=== PATIENT | female | born 1980 | race Caucasian/White ===

== ENCOUNTER 2018-02-11 12:06 | Outpatient (CLI) | payer OTHER ==
[~2018-02-11 12:06] MED LIST: Iopamidol 370 76% 100 ML VIAL ONE
--- NOTE | 2018-02-11 15:00 | CT ---
CT ANGIOGRAM OF HEAD WITH CONTRAST: Date: 02/11/18 HISTORY: 37-year-old female with G93.2 pseudotumor cerebri. TECHNIQUE: IV contrast injection of 100 mL Isovue-370. Axial acquisition at 2.5 mm slice thickness from mid C2 through vertex of head. Coronal and sagittal 3D MIP reconstructions COMPARISON: None. FINDINGS: There is patency with blood flow demonstrated in the bilateral internal jugular veins, sigmoid sinuse s, torcular herophili, straight sinus, vein of Manish, internal cerebral veins, and basal vein of Afia nthal, which appear normal. There is contrast opacification of the superior sagittal sinus, and bilat eral transverse sinuses, but these are thin, probably hypoplastic. There is certainly no evidence of any filling defect to indicate acute thrombosis of these veins. The bilateral carotid siphons, M1 segments of bilateral middle cerebral arteries, A1 and A2 segments of bilateral anterior cerebral arteries, intracranial vertebral arteries, basilar artery, and posteri or cerebral arteries are patent, with no evidence of high grade acquired stenosis. No aneurysm identi fied. There is a thin right paramedian, right occipital, full thickness osseous defect, representing channe l for emissary vein. The skull is otherwise normal. The bilateral tympanomastoid cavities, and the p aranasal sinuses, are grossly clear. IMPRESSION: 1. 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 2. No evidence of acute dural venous sinus thrombosis. POS: [facility]
== END 2018-02-11 12:07 | disposition home or self-care (01) ==
LOC: BICCT 12:06 → CT 12:07
PROVIDERS: ATTEND Neurological Surgery
DX: G93.2 Benign intracranial hypertension (principal); J34.89 Other specified disorders of nose and nasal sinuses
CPT/HCPCS: 70496

== ENCOUNTER 2018-03-22 05:38 | Inpatient (IN) | payer OTHER ==
--- NOTE | 2018-03-21 09:12 | HP ---
HISTORY OF PRESENT ILLNESS: This is a 37-year-old female who reports to our office for a referral fr om a neurologist, Dr. Abdiaziz Bello for evaluation of shunt placement. The patient states that she h as had consistent headaches and dizziness for several years. They are worse in the last several kacy hs. She states that she has had multiple lumbar punctures which have given her relief; however, over the last 4-6 weeks. 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 Currently smokes, wishes to quit. She states that she is hypersensitive to everything around her. She feels as though she is having morning sickness. REVIEW OF SYSTEMS: A 10-point review of systems have been completed and is negative other than state d above in the HPI. PAST MEDICAL HISTORY: Abnormal Pap, headaches, pseudotumor cerebri. PAST SURGICAL HISTORY: Partial ovarian removal, hysterectomy. FAMILY HISTORY: Father is alive, diagnosed with cancer. Mother is alive and children are alive. SOCIAL HISTORY: The patient is a smoker, smokes approximately less than half a pack a day. Denies a ny alcohol or other drug use. MEDICATIONS: Diamox. ALLERGIES: LATEX. PHYSICAL EXAMINATION: GENERAL: The patient is alert and oriented x3, does not appear to be in any visible distress. HEENT: Head is normocephalic, atraumatic. Extraocular movements are intact. Pupils are equal, roun d, and reactive to light. NECK: Normal. Soft, supple. No masses are noted. Range of motion is intact, nonpainful. NEUROLOGIC: Awake, alert and oriented x3. Memory attention, fund of knowledge and language are all normal. Cranial nerves II-XII are intact. EXTREMITIES: Upper extremities normal, does not disclose any focal motor weakness or deep tendon ref wanda asymmetry, 5/5 bilateral, deltoid, biceps, triceps. Lower extremities normal. Does not disclose any focal motor weakness or deep tendon reflex asymmetry. RESPIRATORY: Normal work of breathing on room air. Cardiovascular: Regular rate and rhythm. PLAN: Dr. Street has offered shunt placement.
[2018-03-21 14:56] VITALS: BMI 33.3
[2018-03-22] MEDS ORDERED: Bacitracin Zinc Ointment 30 gm TUBE ONE (06:16)
[2018-03-22] MEDS ORDERED: Sodium Chloride 0.9% 10 ML ONE (06:16)
[2018-03-22] MEDS ORDERED: Lidocaine 0.5%/Epinephrine 1:200,000 50 ml Vial ONE (06:16)
[2018-03-22] MEDS ORDERED: Thrombin 5000 UNITS/5 ML VIAL ONE (06:16)
[2018-03-22] MEDS ORDERED: Fentanyl 250 MCG/5 ML VIAL ONE (06:17)
[2018-03-22] MEDS ORDERED: CEFAZOLIN 2 GM/50 ML BAG ONE (06:17)
[2018-03-22] MEDS ORDERED: Albumin 5% 0 ML ONE (06:18)
[2018-03-22 06:21] LABS: #Basophils 0.1 thou/uL (0.0-0.2); #Eosinphils 0.2 thou/uL (0.0-0.7); #Lymphocytes 4.2 thou/uL (1.20-3.40); #Monocytes 0.7 thou/uL (0.11-0.59); %Basophils 0.7 % (0.0-1.0); %Eosinophils 2.5 % (0.0-10.0); %Lymphocytes 45.9 % (21.0-51.0); %Monocytes 7.2 % (0.0-10.0); %Neutrophils 43.7 % (42.0-75.0); Hemoglobin 13.6 g/dL (12.0-16.0); Mean Corpuscular HGB CONC 32.9 g/dL (32.0-36.0); Mean Corpuscular Hemoglobin 30.5 pg (27.0-31.0); Mean Corpuscular Volume 92.6 fL (78.0-98.0); Platelet Count 281 thou/uL (130-400); RBC Distribution Width 11.8 % (11.5-14.5); Red Blood Cell (RBC) Count 4.47 mill/uL (4.20-5.40); White Blood Cell (WBC) Count 9.1 thou/uL (4.8-10.8)
[2018-03-22 06:24] LABS: PTT 24.7 SEC (22.9-36.1)
[2018-03-22 06:28] LABS: INR-International Normal Ratio 0.9; Prothrombin Time 11.8 SEC (12.0-14.7)
[2018-03-22] MEDS ORDERED: Bupivacaine/Epinephrine 0.25% 30 ML VIAL ONE (06:36)
[2018-03-22] MEDS ORDERED: Midazolam HCl 2 mg/2 ml Vial ONE ×2 (06:43→09:24)
[2018-03-22] MEDS ORDERED: Vancomycin HCl 20 MG, Gentamicin (PEDI) 8 MG, Admixture Fee 1 EACH in Sodium Chloride 0... FS ONE (08:00)
[2018-03-22] MEDS ORDERED: Promethazine HCl 25 MG/ML VIAL IM PRN ×2 (08:58→11:26)
[2018-03-22] MEDS ORDERED: Acetaminophen 650 MG Suppository PR PRN (08:58)
[2018-03-22] MEDS ORDERED: Bisacodyl 10 MG SUPP PR PRN (08:58)
[2018-03-22] MEDS ORDERED: Milk Of Magnesia 30 ML UDCUP PO PRN (08:58)
[2018-03-22] MEDS ORDERED: diphenhydrAMINE 50 MG/ML VIAL IVP PRN (08:58)
[2018-03-22] MEDS ORDERED: diphenhydrAMINE 25 MG CAP PO PRN (08:58)
[2018-03-22] MEDS ORDERED: Ondansetron PF 4 MG/2 ML Vial IVP PRN (08:58)
[2018-03-22] MEDS ORDERED: Mag-Al 1200 mg/1200 mg/30 ML UDCUP PO PRN (08:58)
[2018-03-22] MEDS ORDERED: Promethazine 25 MG TAB PO PRN (08:58)
[2018-03-22] MEDS ORDERED: tiZANidine HCl 4 MG TAB PO PRN (08:58)
[2018-03-22] MEDS ORDERED: Acetaminophen 325 MG TAB PO PRN (08:58)
[2018-03-22] MEDS ORDERED: Acetaminophen/Codeine 30-300mg Tablet PO PRN (08:58)
[2018-03-22] MEDS ORDERED: Vancomycin HCl 1 GM in Premix Bag 1 BAG IVPB SCH ×2 (09:00→21:00)
[2018-03-22] MEDS ORDERED: Fentanyl 100 MCG/2 ML VIAL ONE ×2 (09:25→09:54)
--- NOTE | 2018-03-22 10:18 | OP ---
DATE OF PROCEDURE: 03/22/2018 PREOPERATIVE DIAGNOSIS: Pseudotumor cerebri. POSTOPERATIVE DIAGNOSIS: Pseudotumor cerebri. PROCEDURE: Laparoscopic placement of permanent abdominal drain (abdominal portion of DIRECTOR SOCIAL SERVICE shunt). SURGEON: Senthil Gonzalez M.D. ANESTHESIA: General. ESTIMATED BLOOD LOSS: Minimal. COMPLICATIONS: None. TECHNIQUE: The patient was taken to the operating room and placed supine on the table. After genera l anesthetic was obtained, her chest, abdomen, right scalp was all prepped and draped in a sterile fa shion. Curved incision made below the umbilicus. Cautery was used to dissect down to and score the fascia. Abdominal cavity entered bluntly using a Tracy clamp. The 5 mm laparoscopic port is placed and high-flow pneumoperitoneum was obtained. The assist port is placed in the right abdomen. Tubing for the DIRECTOR SOCIAL SERVICE shunt is tunneled from the scalp by Dr. Street to the upper abdomen where a counterinc ision is made, 5 mm trocars used to make a hole into the abdominal cavity up over the liver. The end of the DIRECTOR SOCIAL SERVICE shunt tubing is threaded up over the liver. It is flushed from above and there is good fl ow. The redundancy is pulled out. There is no bleeding, no injury to any intraabdominal structures. All port sites were infiltrated using local anesthetic. The umbilical incision was closed using Gr aNee needle 0 Vicryl tie. All ports were removed under visualization without bleeding. Pneumoperito neum was let down. Vicryl used to close the fascial defect below the umbilicus. The incisions are c losed using 4-0 Monocryl and Dermabond. The patient was en route to recovery in stable condition. A ll instrument counts, needle counts, lap counts were correct.
--- NOTE | 2018-03-22 10:26 | CT ---
CT HEAD WITH CONTRAST: INDICATIONS: Pseudotumor cerebri. TECHNIQUE: CT brain lab protocol. FINDINGS: There is decreased volume of the ventricular system. There is no evidence of intracranial mass effec t or midline shift. No pathologic intraaxial enhancement is visualized. IMPRESSION: Decreased volume of ventricular system without evidence of intraaxial mass effect or midline shift. POS: [facility]
--- NOTE | 2018-03-22 10:34 | OP ---
DATE OF PROCEDURE: 03/22/2018 SURGEON: Tejas Street M.D. JOB COST ESTIMATOR: Myriam Correa PA-C. PERITONEAL SURGEON: Juan Gonzalez M.D. PREOPERATIVE INDICATION: Prevent neurological deterioration. PREOPERATIVE DIAGNOSES: Pseudotumor cerebri with visual disturbance refractory to medication. POSTOPERATIVE DIAGNOSIS: Pseudotumor cerebri with visual disturbance refractory to medication. OPERATIVE PROCEDURES: BrainLAB stereotactic assisted placement of ventriculoperitoneal shunt, laparo scopic placement of peritoneal portion of FRAMING MANAGER shunt by General Surgery (Dr. Juan Gonzalez). PREOPERATIVE MEDICATION: Vancomycin 1 gram IV. DRAIN NUMBER: Zero. DRAIN TYPE: None. OPERATIVE DICTATION: The patient was brought to the operating room. General endotracheal anesthesia was induced. The patient was positioned supine with the right shoulder bumped and the head immobili zed with a Princeton nicole warhead maintenance specialist. The [place] attachment for the operating table, secured the head in position and using the preoperative BrainLAB CT scan, the [employer] Tow[employer] navigation system, and pruitt rface registration techniques, we created a 3 dimensional navigation space around the patient's crani um. We verified a registration with surface landmarks and found it to be accurate. We then planned our entry point and a trajectory to our chosen target. Hair was removed behind the right ear up over the parietal bone towards the parietal boss. We planned a curvilinear incision around our entry poi nt in the midline subxiphoid incision as a target for passing the peritoneal portion of the catheter. Dr. Gonzalez identified two abdominal incisions for his laparoscopic instrumentation. The head, the neck, the chest and the abdomen were sterilely prepped and draped. Dr. Gonzalez and I worked simulta neously and he introduces laparoscopic instruments into the peritoneum as I exposed the cranial porti on of the procedure. I opened my curvilinear incision with a 10 blade knife and controlled bleeding with bipolar and monopolar cautery. We dissected to the periosteal layer and placed a self-retaining retractor. We used a high-speed drill and a perforating bit to create a angella hole in the parietal b one. We drilled away a thin remnant of cortical bone with a high-speed drill and a tomás angella and then encountered the dura. The dura was gently coagulated with bipolar cautery and opened in a cruci ate fashion. We gently coagulated the kaia. We then created a pocket in the subgaleal space for the valve and we used our shunt passer to tunnel from our cranial incision to the subxiphoid incision whi ch was opened. We passed our shunt passer out of the subxiphoid incision and then passed our periton eal catheter through the tunneling device. The tunneling device was removed distally and the periton eal catheter was intact. We attached the peritoneal catheter to the distal portion of the Delta 1 bu rr hole valve and we pumped antibiotic irrigation through the valve and through the peritoneal cathet er. We visualized the distal portion of it in the peritoneum as Dr. Gonzalez held it with his laparos copic instrumentation. He had pulled the distal end into the peritoneal cavity. We confirmed that t here was irrigant coming out of the distal end. We were then ready for placement of our ventricular catheter. Using a disposable stylet with navigation capabilities, we incised the ventricular catheter, we passe d the catheter through the brain parenchyma into the occipital horn of the right lateral ventricle. We then advanced to 2.5 more centimeters. The stylet was removed and brisk CSF flow was immediately encountered and then it tapered off quickly, because of the small size of the ventricular system. We cut the ventricular catheter at 10 cm. We infused 2 mL of sterile saline with 4 mg of gentamicin an d 10 mg of vancomycin into the ventricular system. Then, we cut the catheter about 9.5 cm and attach ed it to the proximal portion of the angella hole valve and reinforced that attachment with a 0 silk tie . We then tacked down the angella hole valve to the periosteum with interrupted silk suture. We irriga miguel once again with bacitracin irrigation. We closed our incisions in anatomic layers and we applied sterile dressings. Please see Dr. Gonzalez's dictation for the peritoneal portion of the procedure. This is a clean case and no contamination.
[2018-03-22] MEDS ORDERED: Ondansetron HCl/PF 4 MG/2 ML Vial IVP PRN (11:26)
[2018-03-22] MEDS ORDERED: Promethazine HCl 25 MG/ML VIAL SLOW IVP PRN (11:26)
[2018-03-22] MEDS: Vancomycin HCl 1 GM in Premix Bag 1 BAG IVPB SCH ×2 (11:31→21:36)
[2018-03-22] MEDS: Sodium Chloride 0.9% 1,000 ML IV SCH ×2 (11:34→23:54)
[2018-03-22] MEDS ORDERED: Iopamidol 370 76% 100 ML VIAL ONE (11:59)
[2018-03-22] MEDS: Acetaminophen/Codeine 30-300mg Tablet PO PRN (15:53)
[2018-03-22] MEDS ORDERED: PROPOFOL 200 MG/20 ML VIAL ONE (16:44)
[2018-03-22] MEDS ORDERED: Glycopyrrolate 0.2 MG/ML 5 ML SYRINGE ONE (16:44)
[2018-03-22] MEDS ORDERED: Dexamethasone 20 MG/5 ML VIAL ONE (16:44)
[2018-03-22] MEDS ORDERED: Ondansetron PF 4 MG/2 ML Vial ONE (16:44)
[2018-03-22] MEDS ORDERED: PROVENTIL INHALER 6.7 G (200 INHALATIONS) ONE (16:44)
[2018-03-22] MEDS: Morphine 2 MG/ML SYRINGE SLOW IVP PRN ×2 (16:44→21:45)
[2018-03-22] MEDS ORDERED: Lidocaine 1% PF 5 ML VIAL ONE (16:44)
[2018-03-23] MEDS: Morphine 2 MG/ML SYRINGE SLOW IVP PRN ×3 (00:03→04:52)
[2018-03-23] MEDS: Acetaminophen/Codeine 30-300mg Tablet PO PRN (02:11)
[2018-03-23 07:57] VITALS: BP 115/78; TEMP 97.9
[2018-03-23] MEDS: Vancomycin HCl 1 GM in Premix Bag 1 BAG IVPB SCH (08:10)
--- NOTE | 2018-03-23 08:25 | CT ---
PRELIMINARY REPORT/[facility]/EMERGENTY AFTER-HOURS PROCEDURE CT Head Without Intravenous Contrast EXAM DATE/TIME: 03/23/2018 2:42 AM CLINICAL HISTORY: 37 years old, female; Condition or disease; Other: Shunt placement; Prior surgery; Surgery date: Post -operative (0-2 days); Surgery type: Shunt placed on 03/22 TECHNIQUE: Axial computed tomography images of the head/brain without intravenous contrast. COMPARISON: No relevant prior studies available. FINDINGS: Tubes, catheters and devices: HUMAN RESOURCES VICE PRESIDENT shunt catheter enters the right posterior parietal region. The ariadna ter extends into the right lateral ventricle, adjacent to the midline Brain: No acute intracranial hemorrhage or mass effect. No definite acute infarct by CT. Ventricles: Ventricles appear decompressed, no hydrocephalus Bones/joints: No definite acute skull fracture. Sinuses: Included paranasal sinuses are essentially clear. Mastoid air cells: No significant acute finding. IMPRESSION: 1. No acute intracranial hemorrhage or mass effect. 2. HUMAN RESOURCES VICE PRESIDENT shunt catheter as above. Thank you for allowing us to participate in the care of your patient. Dictated and Authenticated by: Juan Hui MD 03/23/2018 3:03 AM Central Time ([place] & [place]) FINAL REPORT BRAIN CT WITHOUT IV CONTRAST: EMERGENCY AFTER HOURS EXAM TIME: 2:43 a.m. DATE: 03/23/2018. FINDINGS: HUMAN RESOURCES VICE PRESIDENT shunt catheter placement. No mass or bleed or other acute process. POS: [facility]
--- NOTE | 2018-03-23 12:00 | PRG ---
DATE OF SERVICE: 03/23/2018 SUBJECTIVE: I saw Velia Kendall this morning on rounds. She is 1 day out from ventriculoperitoneal shunt placement for pseudotumor cerebri. Her shunt was placed stereotactically given her small ventricles. Overnight, Ms. Kendall is very relieved that her symptoms have not returned since shunt placement. She feels she can think better, she can get in and out of bed better, she has no headache, and feels quite good about the results of the operation. The recorded vital signs overnight have been quite stable. The CT scan this morning looks good and her neurological examination is quite reassuring. I went over with Ms. Kendall's activity restrictions, wound care, and followup arrangements. She understands the discussion and she can be discharged today. Job ID: [id number]
== END 2018-03-23 09:40 | disposition home or self-care (01) | DRG 33 ==
LOC: SURG A 05:38 → EDSTATUS 15:32
PROVIDERS: ADMIT Neurological Surgery; ATTEND Neurological Surgery
PROC: 00160J6 Bypass Cerebral Ventricle to Peritoneal Cavity with Synthetic Substitute, Open Approach (ICD-10-PCS; principal; 2018-03-22)
PROC: 0WJG4ZZ Inspection of Peritoneal Cavity, Percutaneous Endoscopic Approach (ICD-10-PCS; 2018-03-22)
PROC: 0W9G40Z Drainage of Peritoneal Cavity with Drainage Device, Percutaneous Endoscopic Approach (ICD-10-PCS; 2018-03-22)
DX: G93.2 Benign intracranial hypertension (principal); F17.210 Nicotine dependence, cigarettes, uncomplicated; Z91.040 Latex allergy status; Z80.9 Family history of malignant neoplasm, unspecified
CPT/HCPCS: 70450; 70460; 85025; 85610; 85730; 90471; 90686; 96374; G0008; J0131; J1100; J1580; J2001; J2250; J2270; J2405; J2704; J3010; J3370; J3490; P9045

== ENCOUNTER 2019-03-07 15:35 | Emergency (ER) | payer OTHER ==
[2019-03-07 16:07] LABS: #Basophils 0.1 thou/uL (0.0-0.2); #Eosinphils 0.1 thou/uL (0.0-0.7); #Lymphocytes 3.5 thou/uL (1.20-3.40); #Monocytes 0.4 thou/uL (0.11-0.59); #Neutrophils 3.7 thou/uL (1.40-6.50); %Basophils 1.4 % (0.0-1.0); %Eosinophils 1.3 % (0.0-10.0); %Lymphocytes 44.4 % (21.0-51.0); %Monocytes 5.2 % (0.0-10.0); %Neutrophils 47.7 % (42.0-75.0); Hemoglobin 13.6 g/dL (12.0-16.0); Mean Corpuscular HGB CONC 34.9 g/dL (32.0-36.0); Mean Corpuscular Hemoglobin 32.2 pg (27.0-31.0); Mean Corpuscular Volume 92.3 fL (78.0-98.0); Mean Platelet Volume 9.5 fL (7.4-10.4); Platelet Count 248 thou/uL (130-400); RBC Distribution Width 11.6 % (11.5-14.5); Red Blood Cell (RBC) Count 4.24 mill/uL (4.20-5.40); White Blood Cell (WBC) Count 7.8 thou/uL (4.8-10.8)
[2019-03-07 16:13] LABS: INR-International Normal Ratio 0.9; PTT 29.6 SEC (22.9-36.1); Prothrombin Time 12.4 SEC (12.0-14.7)
[2019-03-07] MEDS ORDERED: Fentanyl 100 MCG/2 ML VIAL ONE (16:20)
[2019-03-07] MEDS ORDERED: Ondansetron PF 4 MG/2 ML Vial ONE (16:21)
[2019-03-07] MEDS ORDERED: Metoclopramide HCl 10 MG/2 ML VIAL ONE (16:21)
[2019-03-07 16:27] LABS: ALT (SGPT) 22 U/L (8-55); AST (SGOT) 20 U/L (5-34); Albumin 4.6 g/dL (3.5-5.0); Alkaline Phosphatase 67 U/L (40-110); Anion Gap 12 mmol/L (10-20); BUN (Urea Nitrogen) 8 mg/dL (7.0-18.7); Bilirubin, Total 0.4 mg/dL (0.2-1.2); Calc. Creatinine Clearance 0 mL/min (70-130); Calcium 9.4 mg/dL (7.8-10.44); Carbon Dioxide 27 mmol/L (22-29); Chloride 104 mmol/L (98-107); Estimated GFR-MDRD 66; Globulin 2.6 g/dL (2.4-3.5); Glucose 135 mg/dL (70-105); Potassium 3.6 mmol/L (3.5-5.1); Protein, Total 7.2 g/dL (6.0-8.3); Sodium 139 mmol/L (136-145)
--- NOTE | 2019-03-07 16:48 | CT ---
CT OF HEAD NONCONTRAST: 03/07/19 COMPARISON: 03/23/18 INDICATION: Headache. FINDINGS: Right posterior parietal approach ventriculostomy is again demonstrated, with tip terminating at the right frontal horn. The ventricular system is decompressed. No intracranial hemorrhage, mass effect o r midline shift. Exam is grossly stable to prior, comparison exam. IMPRESSION: No acute intracranial hemorrhage, mass effect or ventriculomegaly. POS: [facility]
--- NOTE | 2019-03-07 17:07 | RAD ---
Shuntogram Skull 2 views Neck 1 view Chest one view Abdomen one view HISTORY: Headache. Ventriculoperitoneal shunt. FINDINGS: Right parietal ventricular shunt is radiographically intact. It descends along the left par a midline chest tube the right upper quadrant of the abdomen, coiled over the right lower quadrant. No discontinuity. Metallic clips over the gallbladder fossa. Phleboliths project over the pelvis. Nonspecific bowel gas pattern. IMPRESSION: Ventriculoperitoneal shunt is radiographically intact.
== END 2019-03-07 18:39 | disposition home or self-care (01) ==
LOC: ERS 15:35
DX: R51 Headache (principal); F17.210 Nicotine dependence, cigarettes, uncomplicated
CPT/HCPCS: 36415; 70450; 75809; 80053; 85025; 85610; 85730; J2405; J2765; J3010